=== PATIENT | female | born 1985 | race Two or more races ===

== ENCOUNTER 2020-05-14 02:42 | Inpatient (IN) | payer OTHER ==
[~2020-05-14] VITALS: Ht 154.9 cm; Wt 93.0 kg
--- NOTE | 2020-05-14 03:01 | NUR ---
SE RECIBE PTE ALERTA Y ORIENTADA POR TANYA. PTE EMBARAZADA DE 5 SEMANAS REFIERE PRESENTAR DOLOR PELVICO Y SANGRADO VAGINAL COLOR MOELLER OBSCURO CON COAGULOS DESDE LA MANANA DE JOCELYN.
--- NOTE | 2020-05-14 04:37 | NUR ---
SE ORIENTA A PACIENTE SOBRE TRATAMIENTO. SE CLARITA MUESTRAS DE LABORATORIO ORDENADAS. SE CANALIZA CON AREA DE VENOPUNCION CAS DE EDEMA O ENROJECIMIENTO. SE MANTIENE EN OBSERVACION POR CAMBIOS.
== END 2020-05-16 15:33 | DRG 833 ==
LOC: ER 02:42 → OB/GYN 09:17
PROVIDERS: ADMIT Obstetrics & Gynecology; ATTEND Obstetrics & Gynecology
PROC: BY49ZZZ Ultrasonography of First Trimester, Single Fetus (ICD-10-PCS; principal; 2020-05-14)
DX: O00.111 Right tubal pregnancy with intrauterine pregnancy (principal); Z20.828 Contact with and (suspected) exposure to other viral communicable diseases

== ENCOUNTER → 2020-05-18 09:49 | Outpatient (CLI) | payer OTHER | END | disposition home or self-care (01) | LOC: LAB 09:49 | PROVIDERS: ATTEND Obstetrics & Gynecology | DX: O03.1 Delayed or excessive hemorrhage following incomplete spontaneous abortion (principal); O00.109 Unspecified tubal pregnancy without intrauterine pregnancy ==